=== PATIENT | male | born 1990 | race Caucasian/White ===

== ENCOUNTER 2022-11-29 09:06 | Emergency (ER) | payer OTHER, SELFPAY ==
[2022-11-29 09:15] VITALS: BP 135/93; PULSE 104; RESP 18; TEMP 37.6; O2SAT 100; BMI 31.8
--- NOTE | 2022-11-29 09:16 | ED_ITS ---
HPI - URI/Sore Throat General Chief Complaint: Upper Respiratory Symptoms Stated Complaint: fever, ear pain Time Seen by Provider: 11/29/22 09:15 Source: patient Mode of arrival: ambulatory Limitations: no limitations History of Present Illness HPI Narrative: 32 y/o male presents to the ER for evaluation of headaches, sore throat, ear pain that started yesterday. He went to the gym yesterday morning and felt fine, shortly after he got home he started to feel unwell. He states he has a pounding headache and bilateral ear pain. He also has a sore throat and some pain with swallowing but he is able to eat and drink normally. He had a low grade fever of 100 at home. No known sick contacts. No N/V/D or abdominal pain. No SOB of difficulty breathing. He has a mild cough that hurts his head and ears when he coughs. MD elicited complaint: fever and sore throat Onset (ago): day(s) (1) Consistency: progressively worsening Severity: moderate Able to tolerate fluids by mouth: Yes Relieving factors: OTC cold medicine Associated symptoms: fever, myalgias, headache, nasal congestion, sore throat and cough Treatments prior to arrival: none Related Data Previous Rx's Medication Instructions Recorded amoxicillin 500 mg capsule 500 mg PO BID #20 caps 11/29/22 Allergies Allergy/AdvReac Type Severity Reaction Status Date / Time ibuprofen [From MOTRIN] Allergy Unknown ANGIOEDEMA Unverified 05/10/20 15:50 Review of Systems Review of Systems: Yes all other systems are reviewed and are negative [facility] Social History Social History Advance Directives: No Advance Directives Information Provided: No Physical Exam Vital Signs: Vital Signs: Last Vital Signs Temp 99.6 F 11/29/22 09:15 Pulse 104 H 11/29/22 09:15 Resp 18 11/29/22 09:15 BP 135/93 H 11/29/22 09:15 Pulse Ox 100 11/29/22 09:15 O2 Del Method Room Air 11/29/22 09:15 BMI result Body Mass Index 31.8 Appearance: Alert. Oriented X3. No acute distress. Head: normocephalic, atraumatic. Eyes: Pupils equal, round and reactive to light. ENT: Pharynx normal. + bilateral tonsillar swelling & exudate, uvula midline. normal TMs bilaterally. nares with clear nasal discharge. Neck: Normal inspection. Neck supple. No lAD CVS: Normal heart rate and rhythm. Pulses normal. Respiratory: No respiratory distress. Breath sounds normal. Skin: Skin warm and dry. Normal skin color. Normal skin turgor. No rashes. Extremities: No lower extremity edema. No joint swelling. Neuro/psych: Oriented X 3. Grossly normal, nonfocal Medications Administered Discontinued Medications Generic Name Dose Route Start Last Admin Trade Name Jazmine PRN Reason Stop Dose Admin Acetaminophen 975 mg 11/29/22 09:24 11/29/22 09:31 Acetaminophen 325 Mg Tablet PO 11/29/22 09:25 975 mg ONCE ONE Administration Amoxicillin 500 mg 11/29/22 09:27 11/29/22 09:33 Amoxicillin 500 Mg Capsule PO 11/29/22 09:28 500 mg ONCE ONE Administration Dexamethasone 10 mg 11/29/22 09:31 11/29/22 09:39 Dexamethasone 2 Mg Tablet PO 11/29/22 09:32 10 mg ONCE ONE Administration Medical Decision Making Medical Decision Making [facility] Narrative: 32 yo male presenting to the ER for evaluation of sore throat, headadache and ear pain since yesterday morning. exam is consistent with strep throat. both tonsils are enlarged with exudate. uvula is midline and airway is patent. no unilateral swelling present. He tested negative for COVID and Strep here today. Given his physical exam findings there is high clinical suspicion for Strep - will empirically treat. we discussed symptomatic management as well as return precautions. stable for d/c home with supportive care. Differential Diagnosis Differential Diagnoses: The differential diagnosis associated with the presentation includes strep throat, mononucleosis, covid, flu, other viral syndrome, less likely retropharyngeal abscess or peritonsilar abscess Lab Data [facility] Lab Attestation statement: I reviewed the patient's lab results. Labs: Lab Results 11/29/22 11/29/22 Range/Units 09:25 09:35 COVID-19 (MARIANA) Negative (Negative) COVID-19 Clin Com See Note S. pyogenes GrpA SHERRY Negative (Negative) Independent Historian Clinical information obtained from an independent historian. History obtained from or confirmed by: Spouse Prescription Management I considered prescription management with: Antibiotic Critical Care Time Critical Care Time Critical Care Time: No Discharge Plan Discharge Clinical Impression: Strep pharyngitis Patient Disposition: Home, Self-Care Instructions: Strep Throat (DC) Additional Instructions: Use warm salt water gargles several times per day. Use over the counter Chloaseptic spray and Cepacol lozenges as needed for sore throat Take Tylenol 975 mg every 6 hours around the clock along with Motrin 600-800 mg every 8 hours Recommend Sudafed for a decongestant Rest and drink plenty of fluids Follow up with your doctor as needed If you develop new or worsening symptoms call 911 or come back to the ER for further evaluation. Prescriptions: New amoxicillin 500 mg capsule 500 mg PO BID Qty: 20 0RF
[2022-11-29] MEDS: Acetaminophen 325 MG TABLET 975 MG PO (09:31)
[2022-11-29] MEDS: Amoxicillin 500 MG CAPSULE PO (09:33)
[2022-11-29] MEDS: dexAMETHasone 2 MG TABLET 10 MG PO (09:39)
[2022-11-29 09:46] LABS: COVID-19 Test Negative (Negative); IDNOW Serial# 6674DD1D
[2022-11-29 09:52] LABS: IDNOW Serial# 08D9AD1C; Strep A Nucleic Acid Negative (Negative)
== END 2022-11-29 10:51 | disposition home or self-care (01) ==
PROVIDERS: Physician Assistant; Emergency Provider Emergency Medicine; PCP Internal Medicine
DX: J02.0 Streptococcal pharyngitis (principal); Z20.822 Contact with and (suspected) exposure to COVID-19; R50.9 Fever, unspecified
CPT/HCPCS: 87635; 87651; 99283; J8540